=== PATIENT | male | born 1980 | race Two or more races ===

== ENCOUNTER → 2019-08-08 | Emergency (ER) | payer OTHER ==
[~2019-08-08] VITALS: Ht 180.3 cm; Wt 104.8 kg
[~2019-08-08] MED LIST: CARVEDILOL3.125 MG; CEFADROXIL500 MG PO; GLUCOTROL10 MG; GLUMETZA1000 MG PO; GRALISE600 MG; HUMULIN 70/30 V10 ML SQ; LASIX20 MG PO; VASOTEC20 M1 PO
== END | disposition designated cancer center or children's hospital (05) ==
LOC: ER 12:18
DX: N49.3 Fournier gangrene (principal)